=== PATIENT | female | born 1985 | race Caucasian/White ===

== ENCOUNTER 2018-02-17 17:50 | Emergency (ER) | payer OTHER ==
--- NOTE | 2018-02-17 18:01 | PDOC ---
Rapid Medical Evaluation Chief Complaint: Injury Time Seen by Provider: 02/17/18 17:58 Medical Evaluation: Allergies Allergy/AdvReac Type Severity Reaction Status Date / Time No Known Allergies Allergy Verified 02/17/18 17:58 I have performed a brief in-person evaluation of this patient. The patient presents with a chief complaint of: left eye swelling and pain s/p being hit by her 2 year old son 5 days ago. she has taken no medication for her symptoms. no visual complaints. Pertinent physical exam findings: swelling to left infraorbital region. No ptosis or proptosis I have ordered the following: hcg The patient will proceed to the ED for further evaluation.
[2018-02-17 18:02] VITALS: BP 143/83; PULSE 85; TEMP 98.7; BMI 34.1
--- NOTE | 2018-02-17 18:52 | PDOC ---
History of Present Illness - General Chief Complaint: Injury Stated Complaint: EYE INJURY Time Seen by Provider: 02/17/18 17:58 History Source: Patient Exam Limitations: No Limitations - History of Present Illness Initial Comments: 02/17/18 18:54 Patient is a 32-year-old female who presents to the emergency department complaining of left eye pain. Patient states that she was holding her top bar when he hit his head into her eye. No LOC. She states that she now has swelling and pain to the eye. She also states she feels like she has something in her eye. Denies fevers, visual changes, floaters, flashing lights, headaches, nausea , vomiting and diarrhea. Past History - Travel Traveled outside of the country in the last 30 days: No Close contact w/someone who was outside of country & ill: No - Past Medical History Allergies/Adverse Reactions: Allergies Allergy/AdvReac Type Severity Reaction Status Date / Time No Known Allergies Allergy Verified 02/17/18 17:58 Home Medications: Ambulatory Orders Erythromycin 0.5% Eye Ointment [Erythromycin 0.5% Eye Ointment -] 1 applic OS BID #1 tube 02/17/18 COPD: No - Suicide/Smoking/Psychosocial Hx Smoking History: Never smoked Information on smoking cessation initiated: No Hx Alcohol Use: No Drug/Substance Use Hx: No Substance Use Type: None Review of Systems - Review of Systems Able to Perform ROS?: Yes Comments:: 02/17/18 18:58 CONSTITUTIONAL: Absent: fever, chills, diaphoresis, generalized weakness, malaise, loss of appetite HEENT: Present: L eye pain and swelling Absent: rhinorrhea, nasal congestion, throat pain, throat swelling, difficulty swallowing, mouth swelling, ear pain, visual changes SKIN: Absent: rash, itching, pallor NEUROLOGIC: Absent: headache, focal weakness or paresthesias, dizziness, unsteady gait, seizure, mental status changes, bladder or bowel incontinence Is the patient limited Ethiopian proficient: No *Physical Exam - Vital Signs Last Vital Signs Temp Pulse Resp BP Pulse Ox 98.7 F 85 18 143/83 100 02/17/18 17:59 02/17/18 17:59 02/17/18 17:59 02/17/18 17:59 02/17/18 17:59 - Physical Exam Comments: 02/17/18 19:00 GENERAL: The patient is awake, alert, and fully oriented, in no acute distress. HEAD: Normal with no signs of trauma. EYES: Pupils equal, round and reactive to light, extraocular movements intact, sclera anicteric, conjunctiva clear. Internal stye noted to the L lower eyelid with mild swelling to the eye. Healing bruise under the L eye. EXTREMITIES: Normal range of motion, no edema. NEUROLOGICAL: Normal speech, normal gait. PSYCH: Normal mood, normal affect. SKIN: Warm, Dry, normal turgor, no rashes or lesions noted. ED Treatment Course - ADDITIONAL ORDERS Additional order review: Laboratory Results 02/17/18 18:24 Urine HCG, Qual Negative Medical Decision Making - Medical Decision Making 02/17/18 19:13 Patient is a 32-year-old female with no past medical history presenting problem today complaining of left eye pain and swelling. On exam patient with internal stye. This is most likely causing some of her eye swelling as well as the old injury. Extraocular motions intact without pain. Less concern for orbital floor fracture at this time. Patient given erythromycin ointment for comfort. Return precautions given. Patient understands all discharge instructions and all questions were answered. Ophthalmology referral given. *DC/Admit/Observation/Transfer Diagnosis at time of Disposition: Sty, internal Qualifiers: Laterality: left Eyelid: lower Qualified Code(s): H00.025 - Hordeolum internum left lower eyelid - Discharge Dispostion Disposition: HOME Condition at time of disposition: Stable Admit: No - Prescriptions Prescriptions: Erythromycin 0.5% Eye Ointment [Erythromycin 0.5% Eye Ointment -] 1 applic OS BID #1 tube - Referrals Referrals: El Gibbs MD [Staff Physician] - - Patient Instructions Printed Discharge Instructions: DI for Hordeolum Additional Instructions: You have a stye. This is a pimple of the eyelid. Please use the erythromycin ointment in the eyelid twice a day for the next week. Please use warm compresses to the eye to help with pain. He may take Motrin 600 mg every 8 hours as needed for pain. Follow up with your primary care doctor in 1 week. Return to the emergency department if you have worsening pain, visual changes, headaches, or have any changes in your symptoms. Tienes un orzuelo. Esta es rosalee espinilla del prpado. Utilice la pomada de eritromicina en el prpado dos veces al da anastasiia la pr xima semana. Por favor, use compresas tibias en el janene para ayudar con el dolor. Puede urvashi Motrin 600 mg cada 8 horas segn sea necesario para el dolor. Tessy un seguimiento con saravia mdico de atencin primaria en 1 semana. Regrese al departamento de emergencias si tiene un empeoramiento del dolor, cambios en la visin, ursula de pietro o algn cambio en tamia sntomas Print Language: YEMENI - Post Discharge Activity Forms/Work/School Notes: Back to Work
== END 2018-02-17 18:55 | disposition home or self-care (01) ==
LOC: JERFT 17:50
DX: H00.025 Hordeolum internum left lower eyelid (principal)
CPT/HCPCS: 84703; 99281-25

== ENCOUNTER 2018-10-13 14:27 | Emergency (ER) | payer OTHER ==
[2018-10-13 15:10] VITALS: BP 128/84; PULSE 66; TEMP 97.8; BMI 36.3
[2018-10-13] MEDS ORDERED: RANITIDINE HCL 150 MG TABLET (FP) PO ONE (15:20)
[2018-10-13] MEDS ORDERED: KETOROLAC TROMETHAMINE 60 MG/2 ML VIAL IM ONE (15:20)
--- NOTE | 2018-10-13 15:24 | PDOC ---
History of Present Illness - General Chief Complaint: Back Pain Stated Complaint: BACK PAIN Time Seen by Provider: 10/13/18 15:17 - History of Present Illness Initial Comments: 10/13/18 15:21 33-year-old female without comorbidities presents for evaluation of lower back pain times one day. There was no precipitating traumatic event. She has no radicular symptoms or loss of bowel or bladder function. She has a past medical history significant for gastritis and prediabetes. Past History - Past Medical History Allergies/Adverse Reactions: Allergies Allergy/AdvReac Type Severity Reaction Status Date / Time No Known Allergies Allergy Verified 02/17/18 17:58 Home Medications: Ambulatory Orders NK [No Known Home Medication] 10/13/18 COPD: No Diabetes: Yes GI Disorders: Yes (gastritis) - Surgical History Cholecystectomy: No - Immunization History Immunization Up to Date: No - Suicide/Smoking/Psychosocial Hx Smoking History: Never smoked Have you smoked in the past 12 months: No Information on smoking cessation initiated: No Hx Alcohol Use: No Drug/Substance Use Hx: No Substance Use Type: None Review of Systems - Review of Systems Musculoskeletal: Yes: Back Pain *Physical Exam - Vital Signs Last Vital Signs Temp Pulse Resp BP Pulse Ox 97.8 F 66 16 128/84 98 10/13/18 15:02 10/13/18 15:02 10/13/18 15:02 10/13/18 15:02 10/13/18 15:02 - Physical Exam Comments: 10/13/18 15:21 Lumbar spine skin color and temperature are normal range of motion is limited. There is exquisite tenderness about the left paralumbar lumbar and right paralumbar musculature. With associated mild spasm. 5 out of 5 strength in bilateral lower extremities without gross sensorimotor deficit straight leg raise test is negative. She is neurovascularly intact. Moderate Sedation - Procedure Monitoring Vital Signs: Procedure Monitoring Vital Signs Temperature 97.8 F 10/13/18 15:02 Pulse Rate 66 10/13/18 15:02 Respiratory Rate 16 10/13/18 15:02 Blood Pressure 128/84 10/13/18 15:02 O2 Sat by Pulse Oximetry (%) 98 10/13/18 15:02 Medical Decision Making - Medical Decision Making 10/13/18 15:22 Patient is not on any medication for gastritis and at home she tolerates Advil and Motrin as well as Naprosyn. She is not on that now. I will give her a single dose of Toradol in the emergency room for treatment of her acute pain with the GI protective H2-mariano. And discharge her with a Medrol Dosepak and Flexeril and have her follow-up with orthopedic spine surgery. 10/13/18 15:23 She denies any possibility of . *DC/Admit/Observation/Transfer Diagnosis at time of Disposition: Lumbar strain - Discharge Dispostion Disposition: HOME Condition at time of disposition: Improved - Referrals Referrals: Santo Bhatt MD [Staff Physician] - - Patient Instructions Printed Discharge Instructions: Low Back Pain, DI for Low Back Pain Additional Instructions: Leese take the steroid pack as directed. The muscle relaxers one tablet before bedtime which will make you sleepy. Return to the emergency room should symptoms worsen or go unresolved follow-up with spine surgery in 1-2 days for further evaluation and treatment options. - Post Discharge Activity
[2018-10-13] MEDS ORDERED: KETOROLAC TROMETHAMINE 60 MG/2 ML VIAL ONE (15:30)
[2018-10-13] MEDS ORDERED: RANITIDINE HCL 150 MG TABLET (FP) ONE (15:31)
== END 2018-10-13 16:11 | disposition home or self-care (01) ==
LOC: JERFT 14:27
PROC: 3E0233Z Introduction of Anti-inflammatory into Muscle, Percutaneous Approach (ICD-10-PCS; principal; 2018-10-13)
DX: S39.012A Strain of muscle, fascia and tendon of lower back, initial encounter (principal); M62.830 Muscle spasm of back; X58.XXXA Exposure to other specified factors, initial encounter; Y93.89 Activity, other specified; Y92.89 Other specified places as the place of occurrence of the external cause
CPT/HCPCS: 99281-25

== ENCOUNTER 2019-05-24 23:17 | Emergency (ER) | payer OTHER | END 2019-05-25 04:49 | disposition home or self-care (01) | LOC: JER 23:17 | PROC: 3E033GC Introduction of Other Therapeutic Substance into Peripheral Vein, Percutaneous Approach (ICD-10-PCS; principal; 2019-05-24) | PROC: 3E033NZ Introduction of Analgesics, Hypnotics, Sedatives into Peripheral Vein, Percutaneous Approach (ICD-10-PCS; 2019-05-24) | PROC: 3E033GC Introduction of Other Therapeutic Substance into Peripheral Vein, Percutaneous Approach (ICD-10-PCS; 2019-05-24) | DX: R51 Headache (principal) ==

== ENCOUNTER 2022-04-02 19:11 | Emergency (ER) | payer OTHER ==
[2022-04-02 19:36] VITALS: BP 132/84; PULSE 93; TEMP 98.5; BMI 39.6
[2022-04-02] MEDS ORDERED: ACETAMINOPHEN 500 MG TABLET (FP) PO ONE (23:18)
[2022-04-02] MEDS ORDERED: ACETAMINOPHEN 500 MG TABLET (FP) ONE (23:25)
[2022-04-02 23:47] LABS: BASO % 0.3 % (0-2.0); EOS % 0.5 % (0-4.5); HEMATOCRIT 37.8 % (32.4-45.2); HEMOGLOBIN 11.7 GM/dL (10.7-15.3); LYMPH % 23.4 % (8-40); MCH 21.8 pg (25.7-33.7); MCHC 31.1 g/dl (32.0-36.0); MEAN CELL VOLUME 70.2 fl (80-96); MEAN PLT VOLUME 9.2 fl (7.5-11.1); MONO % 6.9 % (3.8-10.2); NEUT % 68.9 % (42.8-82.8); PLATELET COUNT 264 10^3/uL (134-434); RBC 5.38 M/mm3 (3.60-5.2); RDW 18.4 % (11.6-15.6); WHITE BLOOD COUNT 9.3 K/mm3 (4.0-10.0)
[2022-04-02 23:52] LABS: EPI CELLS 24 /uL (0-25.1); HYALINE CASTS 2 /uL (0-3.1); PH,URINE 6.5 (5.0-8.0); URINE APPEARANCE CLEAR; URINE BACTERIA 2084 /uL (0-1359); URINE BILIRUBIN NEGATIVE (NEGATIVE); URINE COLOR YELLOW; URINE GLUCOSE (UA) NEGATIVE (NEGATIVE); URINE KETONE TRACE (NEGATIVE); URINE LEUK ESTERASE TRACE (NEGATIVE); URINE NITRITE NEGATIVE (NEGATIVE); URINE PROTEIN NEGATIVE (NEGATIVE); URINE RBC 11 /uL (0-23.9); URINE UROBILINOGEN 0.2 mg/dL (0.2-1.0); URINE WBC 39 /uL (0-25.8)
[2022-04-03 00:09] LABS: CALCIUM 9.1 mg/dL (8.5-10.1)
[2022-04-03 00:10] LABS: BLOOD UREA NITROGEN 10.9 mg/dL (7-18)
[2022-04-03 00:13] LABS: CREATININE 0.9 mg/dL (0.55-1.3)
== END 2022-04-03 00:45 | disposition home or self-care (01) ==
LOC: JER 19:11
DX: O23.41 Unspecified infection of urinary tract in pregnancy, first trimester (principal); Z3A.01 Less than 8 weeks gestation of pregnancy
CPT/HCPCS: 36415; 76817-TC; 80048; 81003; 84702; 85025; 86850; 86900; 86901; 87077; 87086; 99284-25

== ENCOUNTER 2022-04-21 00:33 | Emergency (ER) | payer OTHER ==
[2022-04-21 01:09] VITALS: BP 120/82; PULSE 93; TEMP 98.7; BMI 40.1
[2022-04-21] MEDS ORDERED: ACETAMINOPHEN 325 MG TABLET (FP) PO ONE (02:10)
[2022-04-21] MEDS ORDERED: ACETAMINOPHEN 325 MG TABLET (FP) ONE (02:25)
[2022-04-21 02:56] LABS: EPI CELLS 20 /uL (0-25.1); HYALINE CASTS 0 /uL (0-3.1); URINE APPEARANCE CLEAR; URINE BACTERIA 1614 /uL (0-1359); URINE BILIRUBIN NEGATIVE (NEGATIVE); URINE COLOR YELLOW; URINE GLUCOSE (UA) NEGATIVE (NEGATIVE); URINE KETONE NEGATIVE (NEGATIVE); URINE LEUK ESTERASE 1+ (NEGATIVE); URINE NITRITE NEGATIVE (NEGATIVE); URINE PROTEIN NEGATIVE (NEGATIVE); URINE RBC 5 /uL (0-23.9); URINE UROBILINOGEN 0.2 mg/dL (0.2-1.0); URINE WBC 15 /uL (0-25.8)
== END 2022-04-21 04:13 | disposition home or self-care (01) ==
LOC: JER 00:33
DX: O23.41 Unspecified infection of urinary tract in pregnancy, first trimester (principal); O26.891 Other specified pregnancy related conditions, first trimester; G44.209 Tension-type headache, unspecified, not intractable; Z3A.08 8 weeks gestation of pregnancy
CPT/HCPCS: 0241U-QW; 81003; 99283-25

== ENCOUNTER 2022-05-16 19:35 | Emergency (ER) | payer OTHER ==
[2022-05-16 20:04] VITALS: BP 115/71; PULSE 87; RESP 18; TEMP 98.1; BMI 40.7
== END 2022-05-17 03:02 | disposition home or self-care (01) ==
LOC: JER 19:35 → JERFT 19:35
DX: O36.4XX0 Maternal care for intrauterine death, not applicable or unspecified (principal); Z3A.11 11 weeks gestation of pregnancy
CPT/HCPCS: 76817-TC; 99284-25

== ENCOUNTER 2022-05-17 10:30 | Emergency (ER) | payer OTHER ==
[2022-05-17 10:34] VITALS: BMI 40.7
[2022-05-17 11:41] LABS: BASO % 0.2 % (0-2.0); EOS % 0.7 % (0-4.5); HEMATOCRIT 37.5 % (32.4-45.2); HEMOGLOBIN 11.8 GM/dL (10.7-15.3); LYMPH % 28.7 % (8-40); MCH 22.9 pg (25.7-33.7); MCHC 31.6 g/dl (32.0-36.0); MEAN CELL VOLUME 72.5 fl (80-96); MEAN PLT VOLUME 9.2 fl (7.5-11.1); MONO % 7.7 % (3.8-10.2); NEUT % 62.7 % (42.8-82.8); PLATELET COUNT 239 10^3/uL (134-434); RBC 5.16 M/mm3 (3.60-5.2); WHITE BLOOD COUNT 8.1 K/mm3 (4.0-10.0)
[2022-05-17 11:56] LABS: INR 0.98 (0.83-1.09); PROTHROMBIN TIME (PATIENT) 11.3 SEC (9.7-13.0)
[2022-05-17 12:09] LABS: BLOOD UREA NITROGEN 11.7 mg/dL (7-18); CALCIUM 9.3 mg/dL (8.5-10.1)
[2022-05-17 12:10] LABS: ALBUMIN 3.3 g/dl (3.4-5.0)
[2022-05-17 12:12] LABS: CREATININE 0.6 mg/dL (0.55-1.3)
[2022-05-17 12:14] LABS: BILIRUBIN,TOTAL 0.2 mg/dL (0.2-1); TOT PROT 7.2 g/dl (6.4-8.2)
[2022-05-17 17:06] VITALS: TEMP 98.6
[2022-05-17 17:20] VITALS: BP 111/72; PULSE 77; RESP 16
== END 2022-05-17 17:24 | disposition home or self-care (01) ==
LOC: JER 10:30
DX: O03.9 Complete or unspecified spontaneous abortion without complication (principal); Z3A.11 11 weeks gestation of pregnancy
CPT/HCPCS: 36415; 80053; 84702; 85025; 85610; 85730; 86850; 86900; 86901; 93005; 93010; 99284-25; C9803-CS; U0003; U0005

== ENCOUNTER 2022-09-10 22:49 | Emergency (ER) | payer OTHER ==
[2022-09-10 22:57] VITALS: BP 131/77; PULSE 108; RESP 17; TEMP 99; BMI 36.3
[2022-09-11] MEDS ORDERED: AZITHROMYCIN 250 MG TABLET PO ONE (01:02)
[2022-09-11] MEDS ORDERED: AZITHROMYCIN 250 MG TABLET ONE (01:03)
== END 2022-09-11 01:11 | disposition home or self-care (01) ==
LOC: FER 22:49
DX: J20.9 Acute bronchitis, unspecified (principal)
CPT/HCPCS: 81025; 99283-25

== ENCOUNTER 2022-09-16 01:46 | Emergency (ER) | payer OTHER ==
[2022-09-16 01:56] VITALS: BP 133/80; PULSE 86; RESP 18; TEMP 98.7; BMI 35.9
[2022-09-16] MEDS ORDERED: ACETAMINOPHEN 325 MG TABLET (FP) PO ONE (02:02)
[2022-09-16] MEDS ORDERED: ACETAMINOPHEN 325 MG TABLET (FP) ONE (02:08)
[2022-09-16] MEDS ORDERED: IBUPROFEN 600 MG TABLET (FP) PO ONE (02:17)
[2022-09-16] MEDS ORDERED: DEXAMETHASONE 4 MG TABLET (FP) PO ONE (02:31)
[2022-09-16] MEDS ORDERED: AMOX TR/POT CLAV 875MG/125MG TABLETS (FP) PO ONE ×2 (03:04)
[2022-09-16] MEDS ORDERED: AMOX TR/POT CLAV 875MG/125MG TABLETS (FP) ONE (03:09)
== END 2022-09-16 03:12 | disposition home or self-care (01) ==
LOC: FER 01:46
DX: J09.X2 Influenza due to identified novel influenza A virus with other respiratory manifestations (principal); J01.01 Acute recurrent maxillary sinusitis
CPT/HCPCS: 0241U-QW; 70486-TC; 81025; 99284-25

== ENCOUNTER 2022-09-27 05:35 | Emergency (ER) | payer OTHER ==
[2022-09-27 05:50] VITALS: BP 121/75; PULSE 92; RESP 18; TEMP 98.6; BMI 35.9
[2022-09-27] MEDS ORDERED: KETOROLAC TROMETHAMINE 60 MG/2 ML VIAL IM ONE (05:58)
[2022-09-27] MEDS ORDERED: KETOROLAC TROMETHAMINE 60 MG/2 ML VIAL ONE (06:02)
[2022-09-27 09:14] LABS: EPITHELIAL CELLS MANY /hpf
[2022-09-27 09:15] LABS: CALCIUM OXALATE CRYSTALS FEW /hpf (NONE SEEN)
== END 2022-09-27 09:02 | disposition home or self-care (01) ==
LOC: FER 05:35
PROC: 3E0233Z Introduction of Anti-inflammatory into Muscle, Percutaneous Approach (ICD-10-PCS; principal; 2022-09-27)
DX: O26.891 Other specified pregnancy related conditions, first trimester (principal); M54.50 Low back pain, unspecified; Z3A.01 Less than 8 weeks gestation of pregnancy
CPT/HCPCS: 81003; 81015; 81025; 96372; 99284-25

== ENCOUNTER 2023-01-29 00:10 | Emergency (ER) | payer OTHER ==
[2023-01-29 00:22] VITALS: BP 126/75; PULSE 104; RESP 18; TEMP 98.9; BMI 39.3
== END 2023-01-29 00:30 | disposition home or self-care (01) ==
LOC: FER 00:10
DX: O99.512 Diseases of the respiratory system complicating pregnancy, second trimester (principal); J98.8 Other specified respiratory disorders; O99.352 Diseases of the nervous system complicating pregnancy, second trimester; H92.02 Otalgia, left ear; R07.9 Chest pain, unspecified; Z3A.21 21 weeks gestation of pregnancy
CPT/HCPCS: 99282-25

== ENCOUNTER 2023-05-22 11:30 | Inpatient (IN) | payer OTHER ==
[2023-05-22] MEDS ORDERED: ELECTROLYTE-148 SOLN 500 ML IV ONE ×2 (12:00→12:30)
[2023-05-22] MEDS ORDERED: CITRIC ACID/SODIUM CITRATE 30 ML UNIT-DOSE CUP PO ONE (12:00)
[2023-05-22 13:14] VITALS: BMI 42.0
[2023-05-22] MEDS ORDERED: ACETAMINOPHEN 325 MG TABLET (FP) PO PRN ×2 (13:57→15:21)
[2023-05-22] MEDS ORDERED: ONDANSETRON 4 MG/2 ML VIAL IVPUSH PRN (13:57)
[2023-05-22] MEDS ORDERED: IBUPROFEN 600 MG TABLET (FP) PO PRN (13:57)
[2023-05-22] MEDS ORDERED: morphine SULFATE/PF 1 MG/2 ML (2cc Syringe - QUVA) ONE (14:12)
[2023-05-22] MEDS ORDERED: OXYTOCIN 10 UNITS/ML VIAL ONE ×4 (14:14)
[2023-05-22] MEDS ORDERED: ceFAZolin SODIUM 1 GM VIAL ONE ×2 (14:14)
[2023-05-22] MEDS ORDERED: PHENYLEPHRINE HCL 10 MG/1 ML SINGLE DOSE VIAL ONE (14:14)
[2023-05-22] MEDS ORDERED: METHYLERGONOVINE MALEATE 0.2 MG/1 ML AMP IM PRN (15:21)
[2023-05-22] MEDS: OXYTOCIN 20 UNITS in 0.9% NS 20 UNIT/1,000 ML INFUS.BAG IV SCH ×2 (17:30→22:30)
[2023-05-22] MEDS: FERROUS SO4 325 MG TABLET (FP) PO SCH (18:00)
[2023-05-22] MEDS: metFORMIN HCL 500 MG TABLET (FP) PO SCH (19:00)
[2023-05-22] MEDS: SIMETHICONE 80 MG TAB.CHEW (FP) PO PRN (22:00)
[2023-05-22] MEDS: IBUPROFEN 800 MG/8 ML IJ IVPB PRN (22:01)
[2023-05-23] MEDS ORDERED: oxyCODONE HCL 5 MG TABLET PO PRN (03:21)
[2023-05-23] MEDS: IBUPROFEN 800 MG/8 ML IJ IVPB PRN (05:21)
[2023-05-23] MEDS: SIMETHICONE 80 MG TAB.CHEW (FP) PO PRN ×2 (05:22→21:04)
[2023-05-23 07:23] LABS: BASO % 0.4 % (0-2.0); EOS % 0.4 % (0-4.5); HEMATOCRIT 34.9 % (32.4-45.2); LYMPH % 14.6 % (8-40); MCH 25.2 pg (25.7-33.7); MCHC 31.6 g/dl (32.0-36.0); MEAN CELL VOLUME 79.8 fl (80-96); MEAN PLT VOLUME 9.3 fl (7.5-11.1); MONO % 9.7 % (3.8-10.2); NEUT % 74.9 % (42.8-82.8); PLATELET COUNT 171 10^3/uL (134-434); RBC 4.37 M/mm3 (3.60-5.2); RDW 17.4 % (11.6-15.6); WHITE BLOOD COUNT 7.7 K/mm3 (4.0-10.0)
[2023-05-23] MEDS: metFORMIN HCL 500 MG TABLET (FP) PO SCH ×2 (08:45→16:54)
[2023-05-23] MEDS: IBUPROFEN 600 MG TABLET (FP) PO PRN ×3 (08:47→21:04)
[2023-05-23] MEDS: FERROUS SO4 325 MG TABLET (FP) PO SCH ×2 (08:48→16:54)
[2023-05-23] MEDS ORDERED: DIPHTH,PERTUSS(ACELL),TET 0.5 ML DISP.SYRIN IM ONE (10:00)
[2023-05-23] MEDS: PRENATAL VITAMINS W/ FOLIC ACID TABLET (FP) PO SCH (10:05)
[2023-05-23] MEDS ORDERED: BISACODYL 10 MG SUPP.RECT RC PRN (15:21)
[2023-05-23 22:06] VITALS: RESP 18
[2023-05-24] MEDS: SIMETHICONE 80 MG TAB.CHEW (FP) PO PRN ×2 (06:25→21:33)
[2023-05-24] MEDS: IBUPROFEN 600 MG TABLET (FP) PO PRN ×2 (06:25→21:33)
[2023-05-24] MEDS: metFORMIN HCL 500 MG TABLET (FP) PO SCH ×2 (06:25→16:17)
[2023-05-24] MEDS: FERROUS SO4 325 MG TABLET (FP) PO SCH ×2 (08:09→17:24)
[2023-05-24] MEDS: PRENATAL VITAMINS W/ FOLIC ACID TABLET (FP) PO SCH (08:59)
[2023-05-25] MEDS: IBUPROFEN 600 MG TABLET (FP) PO PRN (06:50)
[2023-05-25] MEDS: metFORMIN HCL 500 MG TABLET (FP) PO SCH (06:50)
[2023-05-25 08:33] LABS: BASO % 0.3 % (0-2.0); HEMATOCRIT 33.8 % (32.4-45.2); HEMOGLOBIN 11.1 GM/dL (10.7-15.3); LYMPH % 26.2 % (8-40); MCH 25.6 pg (25.7-33.7); MCHC 32.9 g/dl (32.0-36.0); MONO % 7.2 % (3.8-10.2); NEUT % 65.3 % (42.8-82.8); PLATELET COUNT 204 10^3/uL (134-434); RBC 4.33 M/mm3 (3.60-5.2); RDW 16.9 % (11.6-15.6); WHITE BLOOD COUNT 8.1 K/mm3 (4.0-10.0)
[2023-05-25] MEDS: FERROUS SO4 325 MG TABLET (FP) PO SCH (08:41)
[2023-05-25 09:13] VITALS: BP 139/77; PULSE 98; TEMP 98.3
[2023-05-25] MEDS: PRENATAL VITAMINS W/ FOLIC ACID TABLET (FP) PO SCH (09:50)
== END 2023-05-25 14:08 | disposition home or self-care (01) | DRG 540 ==
LOC: JLDR 11:30 → J3W 17:30
PROVIDERS: ADMIT Obstetrics & Gynecology; ATTEND Obstetrics & Gynecology
PROC: 10D00Z1 Extraction of Products of Conception, Low, Open Approach (ICD-10-PCS; principal; 2023-05-22)
DX: O24.429 Gestational diabetes mellitus in childbirth, unspecified control (principal); Z3A.38 38 weeks gestation of pregnancy; Z37.0 Single live birth
CPT/HCPCS: 36415; 80053; 82962; 85025; 85461; 85610; 86780; 86850; 86900; 86901; 87635; 88307-TC; 90715; 96372; J2790